=== PATIENT | male | born 1995 | race African-American/Black ===

== ENCOUNTER 2025-02-10 03:04 | Emergency (ER) | payer BC, SELFPAY ==
[2025-02-10 03:08] VITALS: BP 138/71; PULSE 95; TEMP 36.7; O2SAT 94; BMI 32.5
--- NOTE | 2025-02-10 03:09 | ED_ITS ---
HPI - Allergic Reaction General Chief complaint: Allergic Reaction Stated complaint: ALLERGIC REACTION, SOB Time Seen by Provider: 02/10/25 03:06 History of Present Illness HPI narrative: This 29-year-old male is brought to the emergency department by his girlfriend for evaluation of an allergic reaction. The patient states that he cannot breathe out of his nose. His nose is running and he is congested. His his eyes are runny and his conjunctiva are erythematous and he has hives. He is not having any difficulty breathing or swallowing. He is not on any medications whatsoever including URBANO inhibitor's. The girlfriend states that the only thing she can think of that he may be allergic to is walnuts because they had walnuts and brownies earlier in the evening. He is not having any nausea or vomiting. He did take an [id number] allergy relief medication earlier in the evening. He denies any chest pain or shortness of breath. He has not had any vomiting or stomach pain. Related Data Home Medications ?Medication ?Instructions ?Recorded ?Confirmed No Known Home Medications 02/10/25 02/10/25 Allergies Allergy/AdvReac Type Severity Reaction Status Date / Time No Known Drug Allergies Allergy Verified 02/10/25 03:15 Review of Systems ROS Status of ROS 10 or more systems reviewed and unremark able except as noted in history and below PFSH PFSH Social History Little interest or pleasure in doing things: not at all Feeling down, depressed, or hopeless: not at all Exam Narrative Exam Narrative: Vital signs and Nursing Notes reviewed: General: Awake, alert, oriented, nontoxic -[place] male, he has audible nasal congestion and clear tearing and clear rhinorrhea HEENT: Normocephalic atraumatic, mucous membranes are moist and pink, eyes are clear, conjunctiva are injected with clear tearing, there is clear rhinorrhea, mild lower lip swelling, there is no swelling of the tongue, uvula or pharyngeal soft tissues, speech is clear, there is no pooling of secretions Neck: Supple, no stridor Chest: Lungs are clear to auscultation with good air entry, there is no wheezing rhonchi or rales appreciated no accessory muscle use, patient is speaking in complete sentences-no chest wall tenderness to palpation CVS: Regular rate and rhythm S1-S2, no murmurs rubs or gallops, pulses are brisk and equal bilaterally Extremities: Moving all extremities, no lower extremity tenderness or swelling noted, negative Homans' sign, pulses are brisk and equal bilaterally Skin: Erythema and urticaria on the chest wall and neck Neuro: No focal deficits MDM - Allergic Reaction MDM Narrative Medical decision making narrative: This 29-year-old male with no significant medical history who is on no medications presents for evaluation of an allergic reaction. His girlfriend states that they ate brownies with walnuts in it earlier in the night. The patient does not think he has had walnuts in the past but is not allergic to peanuts. He is not on any medications and has not taken any medications. The only other possible inciting factor was dryer sheets. Upon arrival he was having some swelling of his lower lip, nasal congestion, conjunctival injection with clear tearing and hives on his neck and chest. He was not having any difficulty breathing or swallowing. His lungs were clear. There is no swelling of the tongue, uvula or pharyngeal soft tissues but again he did have some swelling and subjective numbness of the lower lip. He was given subcutaneous epinephrine, an IV is established and he was given IV fluids, Pepcid, Benadryl and Solu-Medrol. He was also given Afrin for the nasal congestion. On reevaluation, his symptoms has resolved. His nasal congestion has improved after the Afrin. The swelling in his lower lip has resolved. He still has no swelling of his tongue, uvula or pharyngeal soft tissues. He denies any discomfort in his throat and is not having any shortness of breath. The hives on his chest and neck have also resolved. He will be monitored for a period of time to ensure that there is no recurrence of his symptoms prior to being discharged home. Patient was monitored for approximately 2 hours in the emergency department without recurrence of his symptoms. He feels comfortable being discharged home. He will be discharged home with his girlfriend. They both have access to telephones. He will be discharged home with prescription for Pepcid, Medrol Dosepak and an EpiPen. Discharge Plan Discharge Chief Complaint: Allergic Reaction Clinical Impression: Allergic reaction, Angioedema Prescriptions / Home Meds: No Action No Known Home Medications Print Language: Namibian Referrals: Physician,Non-Staff, MD [Primary Care Provider] - 1 week
[2025-02-10 03:30] VITALS: O2SAT 95
[2025-02-10] MEDS: EPINEPHRINE HCL PF 1 MG/ML AMPULE 0.3 MG SUBQ (03:34)
[2025-02-10] MEDS: METHYLPREDNISOLONE SOD SUCC PF 125 MG/2 ML VIAL IVP (03:35)
[2025-02-10] MEDS: FAMOTIDINE/PF 20 MG/2 ML VIAL 40 MG IV (03:35)
[2025-02-10] MEDS: DIPHENHYDRAMINE HCL 50 MG/ML VIAL 25 MG IVP (03:36)
[2025-02-10] MEDS: 0.9 % SODIUM CHLORIDE 1,000 ML 1000 ML IV (03:36)
[2025-02-10] MEDS: OXYMETAZOLINE HCL 0.05% NASAL SPRAY 2 SPRAY NS (03:37)
[2025-02-10 04:28] VITALS: BP 127/51; PULSE 78; O2SAT 99
[2025-02-10 05:09] VITALS: O2SAT 99
== END 2025-02-10 05:12 | disposition home or self-care (01) ==
PROVIDERS: Emergency Provider Emergency Medicine
DX: T78.40XA Allergy, unspecified, initial encounter (principal); T78.3XXA Angioneurotic edema, initial encounter; X58.XXXA Exposure to other specified factors, initial encounter
CPT/HCPCS: 96372; 96374; 96375; 99284; J1200; J2919; J3490

== ENCOUNTER 2025-04-29 15:14 | Emergency (ER) | payer BC, SELFPAY ==
[2025-04-29 15:20] VITALS: BP 128/92; PULSE 64; TEMP 37.1; O2SAT 98; BMI 32.5
--- OUTSIDE RECORDS SUMMARY | 2025-04-29 15:21 | XMS_ITS | Clinical Summary ---
Author Organization [facility] Address [address] [place] [address] Care Team Providers Care Satellite Project Site Monitor Name Role Phone Unallocated, Noms Provider Primary Care Provi bertrand Allergies No known active allergies Medications predniSONE (Deltasone) 50 MG tablet TAKE ONE TABLET DAILY FOR 5 DAYS WITH FOOD OR MILK 05/22/2023 Active azithromycin (Zithromax) 500 MG tabletIndication s:High risk sexual behavior, unspecified type Take 2 tablets once x1 2 tablet 05/29/2023 Active Family History Medical History Relation Name Comments No Known Problems Brother No Known Problems Father No Known Problems Mother Relation Name Status Comments Brother Alive Father Alive Mother Alive Social History Tobacco Use Types Packs/Day Years Used Date Smoking Tobacco: Never Passive Smoke Exposure: Never Smokeless Tobacco: Never Tobacco Cessation:Counseling Given: Not Answered Alcohol Use Standard Drinks/Week Comments Yes 0 (1 standard drink = 0.6 oz pur e alcohol) Sex and Gender Information Value Date Recorded Sex Assigned at Not on file Legal Sex Male 10:13 PM EDT Gender Identity Not on file Sexual Orientation Not on file Last Filed Vital Signs Vital Sign Reading Time Taken Comments Blood Pressure 126/82 05/29/2023 11:13 AM EDT Pulse 88 05/29/2023 11:13 AM EDT Temperature 36.6 C (97.8 F) 05/29/2023 11:13 AM EDT Respiratory Rate 18 05/29/2023 11:13 AM EDT Oxygen Saturation 98% 05/29/2023 11:13 AM EDT Inhaled Oxygen Concentration - - Weight 115 kg (253 lb) 05/29/2023 11:13 AM EDT Height 190.5 cm (6' 3 ) 05/29/2023 11:13 AM EDT Body Mass Index 31.62 05/29/2023 11:13 AM EDT Plan of Treatment Health Maintenance Due Date Last Done Comments Influenza Vaccine (Season Ended) 2025 Insurance BCBS Care Teams Satellite Project Site Monitor Relationship Specialty Start Date End Date Unallocated, Noms MD Nydia [address] [place] [address] PCP - General 05/22/23
--- NOTE | 2025-04-29 15:30 | ED.GENADUL1 ---
HPI HPI - General Adult General Chief complaint: Urogenital-Male Stated complaint: pain in groin Time Seen by Provider: 04/29/25 15:22 Source: patient Mode of arrival: walk-in History of Present Illness HPI narrative: 30-year-old male presents to the emergency department for lumps in his groin. He was seen at an urgent care yesterday and was diagnosed with an STD. He was given IM antibiotic injection and prescribed doxycycline which she has started. He was worried about these lumps. He states the burning on urination seems to be getting better. They have been there for a few days. Related Data Home Medications ?Medication ?Instructions ?Recorded ?Confirmed doxycycline hyclate 100 mg capsule mg 04/29/25 Allergies Allergy/AdvReac Type Severity Reaction Status Date / Time No Known Drug Allergies Allergy Verified 04/29/25 15:20 Review of Systems ROS Narrative A ten point review of systems is negative except as noted above. PFSH PFSH Social History Little interest or pleasure in doing things: not at all Feeling down, depressed, or hopeless: not at all Exam Narrative Exam Narrative: Nurses note and vital signs reviewed and patient is not hypoxic. General: The patient appears well and in no apparent distress. Patient is resting comfortably on cart. Skin: Warm, dry, no pallor noted. There is no rash noted. Head: Normocephalic, atraumatic Eye: Normal conjunctiva, no drainage Ears, Nose, Mouth, and Throat: oral mucosa is moist. Nares patent. Cardiovascular: Regular Rate and Rhythm Respiratory: Patient is in no distress, no accessory muscle use, lungs are clear to auscultation, no wheezing, rales or rhonchi Back: non-tender, no CVA tenderness bilaterally to percussion. GI: Soft and nontender : Mild bilateral inguinal adenopathy present. No fluctuance or overlying erythema Musculoskeletal: The patient has no evidence of calf tenderness, no pitting edema, symmetrical pulses noted bilaterally Neurological: A&O, normal speech Psychiatric: Cooperative Constitutional Vital Signs, click to edit/add: Last Vital Signs Temp 98.7 F 04/29/25 15:20 Pulse 64 04/29/25 15:20 Resp 16 04/29/25 15:20 BP 128/92 H 04/29/25 15:20 Pulse Ox 98 04/29/25 15:20 O2 Del Method Room Air 04/29/25 15:20 Course Vital Signs Vital signs: Vital Signs Temperature 98.7 F 04/29/25 15:20 Pulse Rate 64 04/29/25 15:20 Respiratory Rate 16 04/29/25 15:20 Blood Pressure 128/92 H 04/29/25 15:20 Pulse Oximetry 98 04/29/25 15:20 Oxygen Delivery Method Room Air 04/29/25 15:20 Temperature 98.7 F 04/29/25 15:20 Pulse Rate 64 04/29/25 15:20 Respiratory Rate 16 04/29/25 15:20 Blood Pressure 128/92 H 04/29/25 15:20 Pulse Oximetry 98 04/29/25 15:20 Oxygen Delivery Method Room Air 04/29/25 15:20 Medical Decision Making MDM Narrative Medical decision making narrative: My clinical impression is that the patient has bilateral inguinal adenopathy. He was reassured. He will finish his antibiotics. Treatment diagnosis and follow-up were discussed with the patient. Differential Diagnosis Differential Diagnosis: Adenopathy, cellulitis, abscess Discharge Plan Discharge Chief Complaint: Urogenital-Male Clinical Impression: Lymphadenopathy, inguinal Patient Disposition: Home, Self-Care Time of Disposition Decision: 15:29 Condition: Good Mode of Transportation: Private Vehicle Prescriptions / Home Meds: No Action doxycycline hyclate 100 mg capsule Print Language: Faroese Additional Instructions: Continue the antibiotics prescribed to you yesterday, and finish them. Referrals: Physician,Non-Staff, MD [Primary Care Provider] - 1 week
== END 2025-04-29 15:47 | disposition home or self-care (01) ==
PROVIDERS: Emergency Provider Emergency Medicine
DX: R59.0 Localized enlarged lymph nodes (principal)
CPT/HCPCS: 99282

== ENCOUNTER 2025-07-03 13:19 | Emergency (ER) | payer BC, SELFPAY ==
[2025-07-03 13:23] VITALS: BP 124/80; PULSE 58; TEMP 36.8; O2SAT 97; BMI 31.2
--- NOTE | 2025-07-03 13:27 | PC.NURSE ---
PT STATES BEEN LOOSING PATCHES OF HAIR OFF AND ON OVER THE PAST MONTH. PT STATES HAS HAPPENED BEFORE AND GOT AN INJECTION INTO SCALP AND HAIR GREW BACK. PT HAS FAMILY HX OF ALOPECIA
--- NOTE | 2025-07-03 13:31 | ED.SKABFB1 ---
HPI - Skin/Abscess/Foreign Bdy General Chief complaint: Skin/Abscess/Foreign Body Stated complaint: LOSING PATCHES OF HAIR Time Seen by Provider: 07/03/25 13:29 Source: patient Mode of arrival: walk-in Limitations: no limitations History of Present Illness HPI narrative: 30 year old male presents to the ED for hair loss. Reports several patches of hair loss to his scalp and gan with onset a few weeks ago. States he had one patch of hair loss 5 years ago and was given an injection in his scalp with improvement. Denies fever, chills, injury. Denies use of new medications or products. Reports increased stress. Related Data Home Medications ?Medication ?Instructions ?Recorded ?Confirmed No Known Home Medications 07/03/25 07/03/25 Allergies Allergy/AdvReac Type Severity Reaction Status Date / Time walnut AdvReac Mild Swelling Verified 07/03/25 13:23 of the Eye Review of Systems ROS Constitutional Denies: fever or chills Ears, nose, mouth, and throat Denies: throat pain Cardiovascular Denies: chest pain Respiratory Denies: shortness of breath Integumentary/Breast Reports: change in hair Neurological Denies: headache PFSH PFSH Social History Little interest or pleasure in doing things: not at all Feeling down, depressed, or hopeless: not at all Exam Constitutional Vital Signs, click to edit/add: Last Vital Signs Temp 98.2 F 07/03/25 13:23 Pulse 58 L 07/03/25 13:23 Resp 18 07/03/25 13:23 BP 124/80 07/03/25 13:23 Pulse Ox 97 07/03/25 13:23 O2 Del Method Room Air 07/03/25 13:23 Common normals: no apparent distress and oriented x3 General appearance: cooperative HENMT Other: Two patches of hair loss noted to scalp area. No erythema, crusting, or drainage to areas. Eye Common normals: conjunctivae normal and no scleral icterus Neck & C-Spine Common normals: supple Chest Chest: symmetrical chest wall rise Respiratory Common normals: normal respiratory effort Effort & inspection: able to speak in complete sentences and symmetric chest movement Cardio Common normals: regular rate Neuro Oliverio Coma Scale: document GCS findings Common normals: oriented x3 and moves all extremities Sensorium/orientation: awake and alert Speech: speech normal Gait (neuro): normal gait Course Vital Signs Vital signs: Vital Signs Temperature 98.2 F 07/03/25 13:23 Pulse Rate 58 L 07/03/25 13:23 Respiratory Rate 18 07/03/25 13:23 Blood Pressure 124/80 07/03/25 13:23 Pulse Oximetry 97 07/03/25 13:23 Oxygen Delivery Method Room Air 07/03/25 13:23 Temperature 98.2 F 07/03/25 13:23 Pulse Rate 58 L 07/03/25 13:23 Respiratory Rate 18 07/03/25 13:23 Blood Pressure 124/80 07/03/25 13:23 Pulse Oximetry 97 07/03/25 13:23 Oxygen Delivery Method Room Air 07/03/25 13:23 MDM - Skin/Abscess/Foreign Bdy MDM Narrative Medical decision making narrative: Follow up with dermatology for a recheck, further evaluation and treatment. Differential Diagnosis Differential diagnosis: Likely other (alopecia, fungal infection, trauma) Medical Records Attestation: I reviewed the patient's medical records. Discharge Plan Discharge Chief Complaint: Skin/Abscess/Foreign Body Clinical Impression: Patchy loss of hair Patient Disposition: Home, Self-Care Time of Disposition Decision: 13:29 Condition: Good Mode of Transportation: Private Vehicle Prescriptions / Home Meds: No Action No Known Home Medications Print Language: [place] Verdean Instructions: Alopecia (DC) Referrals: FRIDA ASKEW [Physician, Family Practice] - 1 week Physician,Non-Staff, MD [Primary Care Provider] - 1 week NIEVES VERDUGO [Physician, Family Practice] - 1 week Discharge Date/Time: 07/03/25 13:35
--- OUTSIDE RECORDS SUMMARY | 2025-07-03 13:54 | XMS_ITS | CCD ---
Author Organization [facility] Inform ion Partnership [facility] Care Team Providers Care Obstetrics Tech Name Role Phone EVA PARMAR Admitting Unavailable EVA PARMAR Attending Unavailable DR JAMIE YU V Consulting Unavailable EVA PARMAR Consulting Unavailable KIMBERLY Eden Attending Provider BRIANNE Segovia Attending Provider Carine Granados Admitting Unavailable Carine Granados Attending Unavailable NO FAMILY, PHYSICIAN Primary Care Unavailable Allergies Allergy Classification Reported Allergen(s) Allergy Type Date of Onset Reaction(s) Facility (3 sources) walnut; Translations: [walnut] Allergy to substance 5 Difficulty Breathing [facility] Medications Current Medications Medication Drug Class(es) Dates Sig (Normalized) Sig (Original) Arm Brace misc (1 source) Start: 04-14-2025 Arm Brace misc Active 0 .Route 1 April 14, 2025 12:00am As directed [place] (No Known Home Meds) (2 sources) Start: 04-12-2024 [place] (No Known Home Meds) Active April 12, 2024 12:00am Completed/Discontinued Medications Medication Drug Class(es) Dates Sig (Normalized) Sig (Original) amoxicillin 875 mg oral tablet (7 sources) Penicillin-class Antibacterial Start: 06-05-2021 End: 05-22-2023 take 1 tablet by mouth twice daily Amoxicillin 875 mg tablet Discontinued 875 MG PO Twice daily 01 09June 05, 2021 12:00am May 22, 2023 1:50pm azithromycin 500 mg oral tablet (7 sources) Macrolide Antimicrobial Start: 02-25-2024 End: 03-22-2024 take 1 tablet by mouth once at mealtime Azithromycin 500 mg tablet Discontinued 1000 MG PO Once February 25, 2024 12:00am March 22, 2024 1:02pm Take both tablets by mouth with food today Start: 02-25-2024 End: 03-22-2024 take 1 tablet by mouth once at mealtime Azithromycin Discontinued 1000 MG PO Once February 25, 2024 12:00am March 22, 2024 1:02pm Take both tablets by mouth with food today cyclobenzaprine hydrochloride 10 mg oral tablet (9 sources) Muscle Relaxant Start: 03-03-2025 End: 04-14-2025 take 1 tablet by mouth three times daily as needed for muscle spasms Cyclobenzaprine 10 mg tablet Discontinued 10 MG PO Three times daily as needed for muscle spasm 15 March 03, 2025 12:00am March 03, 2025 10:43am Start: 03-22-2024 End: 04-12-2024 take 1 tablet by mouth three times daily as needed for muscle spasms Cyclobenzaprine 10 mg tablet Discontinued 10 MG PO Three times daily as needed for muscle spasm 15 March 22, 2024 12:00April 12, 2024 2:45pm diclofenac sodium 0.01 mg/mg topical gel (7 sources) Nonsteroidal Anti-inflammatory Drug Start: 05-22-2023 End: 03-22-2024 apply 4 g topically four times daily Diclofenac Sodium 1 % gel Discontinued 4 GM TOPICAL Four times daily May 22, 2023 12:00am March 22, 2024 1:02pm apply to single knee, ankle, foot; for foot includes sole/toes/top of foot Start: 05-22-2023 End: 03-22-2024 apply 4 g topically four times daily Diclofenac Sodium Discontinued 4 GM TOPICAL Four times daily May 22, 2023 12:00am March 22, 2024 1:02pm apply to single knee, ankle, foot; for foot includes sole/toes/top of foot ibuprofen 800 mg oral tablet (12 sources) Nonsteroidal Anti-inflammatory Drug Start: 03-22-2024 End: 04-12-2024 take 1 tablet by mouth every eight hours as needed for pain Ibuprofen 800 mg tablet Discontinued 800 MG PO Every 8 hours as needed for pain 30 March 22, 2024 12:00am April 12, 2024 2:45pm Start: 06-05-2021 End: 05-22-2023 take 1 tablet by mouth every eight hours as needed for pain Ibuprofen 600 mg tablet Discontinued 600 MG PO Q8H as needed for pain June 05, 2021 12:00am May 22, 2023 1:50pm metroNIDAZOLE 500 mg oral tablet (7 sources) Nitroimidazole Antimicrobial Start: 02-25-2024 End: 03-22-2024 take 4 tablets by mouth once at mealtime Metronidazole 500 mg tablet Discontinued 2000 MG PO Once February 25, 2024 12:00am March 22, 2024 1:02pm Take all 4 tablets at once with food tomorrow. Start: 02-25-2024 End: 03-22-2024 take 4 tablets by mouth once at mealtime Metronidazole Discontinued 2000 MG PO Once February 25, 2024 12:00am March 22, 2024 1:02pm Take all 4 tablets at once with food tomorrow. predniSONE 50 mg oral tablet (7 sources) Start: 05-22-2023 End: 03-22-2024 take 1 tablet by mouth once daily at mealtime Prednisone 50 mg tablet Discontinued 50 MG PO Daily 03 17May 22, 2023 12:00am March 22, 2024 1:02pm administer with food or milk Problems Problem Classification Problem Date Documented Da te Episodic/Chronic Administrative/social admission (4 sources) Encounter for pre-employment examination; Translations: [ENCOUNTER FOR PRE-EMPLOYMENT EXAM] Onset: 01-12-2023 Episodic Genitourinary symptoms and ill-defined conditions (5 sources) Dysuria; Translations: [Dysuria] 02-25-2024 Episodic Nausea and vomiting (7 sources) Nausea; Translations: [Nausea] 10-25-2023 Episodic Comment on above: Problem List clean-u p per request of Phys. EHR Cmte Other connective tissue disease (7 sources) Muscle pain; Translations: [Myalgia, unspecified site] 10-25-2023 Episodic Comment on above: Problem List clean-u p per request of Phys. EHR Cmte Other non-traumatic joint disorders (7 sources) Effusion of joint of left knee; Translations: [Effusion, left knee] 05-30-2023 Episodic Other upper respiratory infections (7 sources) Sinusitis; Translations: [Chronic sinusitis, unspecified] 10-25-2023 Chronic Comment on above: Problem List clean-u p per request of Phys. EHR Cmte Residual codes; unclassified (8 sources) High risk heterosexual behavior; Translations: [High-risk sexual behavior] Onset: 04-28-2025 02-25-2024 Episodic Sprains and strains (9 sources) Low back strain; Translations: [Strain of muscle, fascia and tendon of lower back, initial encounter] 03-22-2024 Episodic Results Test Name Value Interpretation Reference Range Facil ity Chlamydia/GC/Trich NAAon Chlamydia Trachomotis, PARTH Negative Normal Negative [facility] Comment on above: Performed By: #### G CCHLAMTRI #### [facility] , Neisseria Gonorrhoeae, PARTH Negative Normal Negative [facility] Comment on above: Performed By: #### G CCHLAMTRI #### [facility] , Trichomonas PARTH Negative Normal Negative [facility] Comment on above: Result Comment: Perf ormed at: =G - [facility] [address], [place] [id number] Home Health Clinical Liaison: Krista Centeno MD, Phone: [phone] PERFORMED BY: [facility] [address] [place] [address] PATHOLOGIST SUCTION PLATE ROLLER HAND KATIE WATSON M.D. Performed By: #### G CCHLAMTRI #### [facility] , Chlamydia trachomatis DNA [P resence] in Specimen by PARTH with probe detectionOrdered By: Omaira Eden on 02-25-2024 C. trachomatis DNA PARTH+probe Ql (Unsp spec) Negative Negative [facility] Neisseria gonorrhoeae DNA [P resence] in Specimen by PARTH with probe detectionOrdered By: Omaira Eden on 02-25-2024 N. gonorrhoeae DNA PARTH+probe Ql (Unsp spec) Positive Negative [facility] Trichomonas vaginalis DNA [P resence] in Specimen by PARTH with probe detectionOrdered By: Omaira Eden on 02-25-2024 T. vaginalis DNA PARTH+probe Ql (Unsp spec) Negative Negative [facility] Comment on above: Performed at: =G - [address], [place] [id number] Director: Krista Centeno MD, Phone: [phone] Vital Signs Date Time Vital Sign Value Performing Clinician Edilson jones 04-14-2025 12:05-0400 Body height 190.5 cm [facility] 04-14-2025 12:05-0400 Body mass index (BMI) [Ratio] 33 kg/m2 [facility] 04-14-2025 12:05-0400 Body temperature 97.9 [degF] [facility] 04-14-2025 12:05-0400 Body weight 119.74 kg [facility] 04-14-2025 12:05-0400 Diastolic blood pressure 83 mm[Hg] [facility] 04-14-2025 12:05-0400 Heart rate 67 /min [facility] 04-14-2025 12:05-0400 Respiratory rate 18 /min [facility] 04-14-2025 12:05-0400 SaO2% (BldA) [Mass fraction] 98 % [facility] 04-14-2025 12:05-0400 Systolic blood pressure 144 mm[Hg] [facility] 03-03-2025 10:08-0400 Body height 190.5 cm [facility] 03-03-2025 10:08-0400 Body mass index (BMI) [Ratio] 32.3 kg/m2 [facility] 03-03-2025 10:08-0400 Body temperature 97.6 [degF] [facility] 03-03-2025 10:08-0400 Body weight 117.25 kg [facility] 03-03-2025 10:08-0400 Diastolic blood pressure 76 mm[Hg] [facility] 03-03-2025 10:08-0400 Heart rate 66 /min [facility] 03-03-2025 10:08-0400 Respiratory rate 14 /min [facility] 03-03-2025 10:08-0400 SaO2% (BldA) [Mass fraction] 98 % [facility] 03-03-2025 10:08-0400 Systolic blood pressure 111 mm[Hg] [facility] 04-12-2024 14:42-0400 Body height 190.5 cm [employer]ECH LANGUAGE PATHOLOGIST TRAVEL-C Omaira Karey Work Phone: [facility] 04-12-2024 14:42-0400 Body mass index (BMI) [Ratio] 32.2 kg/m2 [employer] PATHOLOGIST TRAVEL-C Omaira Karey Work Phone: [facility] 04-12-2024 14:42-0400 Body temperature 98.1 [degF] [employer]ANGUAGE PATHOLOGIST TRAVEL-C Omaira Karey Work Phone: [facility] 04-12-2024 14:42-0400 Body weight 117 kg [employer] LANGUAGE PATHOLOGIST TRAVEL-C Omaira Karey Work Phone: [facility] 04-12-2024 14:42-0400 Diastolic blood pressure 63 mm[Hg] [employer] LANGUAGE PATHOLOGIST TRAVEL-C Omaira Karey Work Phone: [facility] 04-12-2024 14:42-0400 Heart rate 71 /min [employer] LANGUAGE PATHOLOGIST TRAVEL-C Omaira Karey Work Phone: [facility] 04-12-2024 14:42-0400 Respiratory rate 18 /min [employer] LANGUAGE PATHOLOGIST TRAVEL-C Omaira Karey Work Phone: [facility] 04-12-2024 14:42-0400 SaO2% (BldA) [Mass fraction] 97 % [employer]ANGUAGE PATHOLOGIST TRAVEL-C Omaira Karey Work Phone: [facility] 04-12-2024 14:42-0400 Systolic blood pressure 139 mm[Hg] [employer] LANGUAGE PATHOLOGIST TRAVEL-C Omaira Karey Work Phone: [facility] 03-22-2024 13:05-0400 Body height 190.5 cm SPEECH LANGUAGE PATHOLOGIST TRAVEL-C Omaira Karey Work Phone: [facility] 03-22-2024 13:05-0400 Body mass index (BMI) [Ratio] 32.5 kg/m2 [employer] LANGUAGE PATHOLOGIST TRAVEL-C Omaira Karey Work Phone: [facility] 03-22-2024 13:05-0400 Body temperature 98.3 [degF] SPE[employer] LANGUAGE PATHOLOGIST TRAVEL-C Omaira Karey Work Phone: [facility] 03-22-2024 13:05-0400 Body weight 117.93 kg [employer] LANGUAGE PATHOLOGIST TRAVEL-C Omaira Karey Work Phone: [facility] 03-22-2024 13:05-0400 Diastolic blood pressure 81 mm[Hg] [employer] LANGUAGE PATHOLOGIST TRAVEL-C Omaira Karey Work Phone: [facility] 03-22-2024 13:05-0400 Heart rate 86 /min [employer] LANGUAGE PATHOLOGIST TRAVEL-C Omaira Karey Work Phone: [facility] 03-22-2024 13:05-0400 Respiratory rate 18 /min [employer] LANGUAGE PATHOLOGIST TRAVEL-C Omaira Karey Work Phone: [facility] 03-22-2024 13:05-0400 SaO2% (BldA) [Mass fraction] 99 % [employer] LANGUAGE PATHOLOGIST TRAVEL-C Omaira Karey Work Phone: [facility] 03-22-2024 13:05-0400 Systolic blood pressure 140 mm[Hg] SPEE[employer] LANGUAGE PATHOLOGIST TRAVEL-C Omaira Karey Work Phone: [facility] 02-25-2024 10:35-0400 Body height 190.5 cm [facility] 02-25-2024 10:35-0400 Body mass index (BMI) [Ratio] 32.3 kg/m2 [facility] 02-25-2024 10:35-0400 Body temperature 98.6 [degF] [facility] 02-25-2024 10:35-0400 Body weight 117.19 kg [facility] 02-25-2024 10:35-0400 Diastolic blood pressure 80 mm[Hg] [facility] 02-25-2024 10:35-0400 Heart rate 74 /min [facility] 02-25-2024 10:35-0400 Respiratory rate 18 /min [facility] 02-25-2024 10:35-0400 SaO2% (BldA) [Mass fraction] 97 % [facility] 02-25-2024 10:35-0400 Systolic blood pressure 133 mm[Hg] [facility] Encounters Encounter Date Encounter Type Care Provider Facility Start: 04-28-2025 End: 04-28-2025 ambulatory Carine Granados Facility:[facility] Start: 04-14-2025 End: 04-14-2025 ambulatory [facility] Work Phone: Start: 04-14-2025 End: 04-14-2025 Patient encounter procedure [facility] Work Phone: Start: 03-03-2025 End: 03-03-2025 ambulatory [facility] Work Phone: Start: 03-03-2025 End: 03-03-2025 Patient encounter procedure [facility] Work Phone: Start: 04-12-2024 End: 04-12-2024 Departed Referred [employer] LANGUAGE PATHOLOGIST TRAVEL-C Omaira Karey Work Phone: [facility] [place] Work Phone: Start: 04-12-2024 End: 04-12-2024 ambulatory [employer] PATHOLOGIST TRAVEL-C Omaira Karey Work Phone: [facility] Work Phone: Start: 04-12-2024 End: 04-12-2024 Patient encounter procedure SPEECH LANGUAGE PATHOLOGIST TRAVEL-C Omaira Karey Work Phone: [facility] Work Phone: Start: 03-22-2024 End: 03-22-2024 ambulatory [employer] LANGUAGE PATHOLOGIST TRAVEL-C Omaira Karey Work Phone: [facility] Work Phone: Start: 03-22-2024 End: 03-22-2024 Patient encounter procedure SPEECH LANGUAGE PATHOLOGIST TRAVEL-C Omaira Karey Work Phone: [facility] Work Phone: Start: 02-25-2024 End: 02-25-2024 Departed Referred SPEECH LANGUAGE PATHOLOGIST TRAVEL-C Omaira Eden Work Phone: [facility] [place] Work Phone: Start: 02-25-2024 End: 02-25-2024 ambulatory [facility] Work Phone: Start: 02-25-2024 End: 02-25-2024 Patient encounter procedure [facility] Work Phone: Start: 01-12-2023 End: 01-13-2023 ambulatory EVA AGATA Facility: Plan of Treatment Date Care Activity Detail Author Start: 04-12-2024 [facility] Start: 02-26-2024 [facility] Chlamydia trachomati s DNA [Presence] in Unspecified specimen by PARTH with probe detection [facility] Chlamydia trachomati s DNA [Presence] in Unspecified specimen by PARTH with probe detection [facility] Neisseria gonorrhoea e DNA [Presence] in Unspecified specimen by PARTH with probe detection [facility] Neisseria gonorrhoea e DNA [Presence] in Unspecified specimen by PARTH with probe detection [facility] Trichomonas vaginali s DNA [Presence] in Unspecified specimen by PARTH with probe detection [facility] Trichomonas vaginali s DNA [Presence] in Unspecified specimen by PARTH with probe detection [facility] Payers Date Payer Category Payer Unknown [id number] 1958 Self-pay Private Health Insurance [employer] [id number] Unknown [id number] Unknown Private Pay [facility] [id number] Unknown [id number] Social History Date Type Detail Facility Start: 05-22-2023 End: 03-22-2024 Tobacco smoking status NHIS Smoker (finding) [facility] Start: 1995 Sex Assigned At Male F [facility] Start: 03-03-2025 Tobacco smoking stat NHIS Ex-smoker (finding) [facility] Start: 03-03-2025 End: 04-14-2025 Sex Male (finding) [facility] Evaluation note 03-03-2025 Note Date & Type Note Facility 03-03-2025 Evaluation note Diagnosis Onset Date Resolution Low back strain acute February 9:46am Sprain of left wrist acute April 14, 2025 11:39am [facility] Work Phone: Clinical Note 01-12-2023 Note Date & Type Note Facility 01-12-2023 Note EXAMINATION: XR CHES T 2 V HISTORY: History and physical examination, pre-employment COMPARISON: No relevant comparison available. TECHNIQUE: PA and lateral FINDINGS: LUNGS: No significant pulmonary parenchymal abnormalities. VASCULATURE: No increased pulmonary vasculature. PLEURA: No pneumothorax, effusion, or pleural thickening. CARDIAC: No cardiomegaly or cardiac silhouette abnormality. MEDIASTINUM: No visible mass or adenopathy. BONES: No fracture or visible bone lesion. OTHER: Negative. IMPRESSION: No acute disease. Electronically authenticated by: JAMIE YU Date: 2023-01-12 16:24 [facility] Evaluation note Note Date & Type Note Facility Evaluation note Diagnosis Onset Date High risk sexual behavior no neactive Dysuria noneactive [facility] Work Phone: Evaluation note Note Date & Type Note Facility Evaluation note Diagnosis Onset Date High risk sexual behavior no neactive Dysuria noneactive Low back strain acute High risk sexual behavior no neactive [facility] Work Phone: Evaluation note Note Date & Type Note Facility Evaluation note No assessment information availa ble [facility] Work Phone: Summary Purpose Family History No Family History Records FoundNo Family History Records Found Advance Directives No Advanced Directives Records Found Advance Directive Response Recorded Date/ Time Advance Directives No July 10:04am Chief Complaint and Reason for Visit Chief Complaint poss std Reason for Visit High risk sexual beh avior Dysuria Chief Complaint poss std High risk sexual behavior Reason for Visit High risk sexual beh avior Dysuria Chief Complaint poss std Z72.51 lower back hurts Reason for Visit High risk sexual beh avior Dysuria Chief Complaint poss std Z72.51 lower back hurts Sti check Reason for Visit High risk sexual beh avior Dysuria Low back strain High risk sexual behavior Chief Complaint poss std Z72.51 lower back hurts Sti check High risk sexual behavior Reason for Visit High risk sexual beh avior Dysuria Low back strain High risk sexual behavior Chief Complaint Admit Date lower back pain from weight lifting Apri l 2024 9:46am Chief Complaint Admit Date lower back pain from weight lifting Apri l 2024 9:46am left wrist injury April 14, 2025 11:39 am Reason for Visit Admit Date Low back strain March 03, 2025 9:4 6am Sprain of left wrist April 14, 2025 11:3 9am Additional Source Comments (unrecognized sect ion and content) No Status Records FoundNo Status Records Found INFORMATION SOURCE (unrecogn ized section and content) DATE CREATED AUTHOR 01/18/2023 Que carrasquilloal DATE CREATED AUTHOR AUTHOR'S ORGANIZ ATION 05/04/2025 [facility] Care Teams (unrecognized sec tion and content) Team Status: Active Member Role Status Dates PHYSICIAN NO FAMILY Primary Care Provider Active Team Status: Inactive Member Role Status Dates PHYSICIAN NO FAMILY Primary Care Provider Active Start: February 25, 2024 End: February 25, 2024 KIMBERLY Pereira Attending Provider Active S tart: February 25, 2024 End: February 25, 2024 Team Status: Inactive Member Role Status Dates KIMBERLY Pereira Attending Provider Active S tart: February 25, 2024 End: February 25, 2024 Team Status: Active Member Role Status Dates NON STAFF Primary Care Provider Active Team Status: Inactive Member Role Status Dates Ronit Segovia APRN Attending Provider Active Start: March 22, 2024 End: March 22, 2024 NON STAFF Primary Care Provider Active Start: March 22, 2024 End: March 22, 2024 Team Status: Inactive Member Role Status Dates NON STAFF Primary Care Provider Active Start: April 12, 2024 End: April 12, 2024 Ronit Segovia APRN Attending Provider Active Start: April 12, 2024 End: April 12, 2024 Team Status: Inactive Member Role Status Dates Ronit Segovia APRN Attending Provider Active Start: April 12, 2024 End: April 12, 2024 Team Status: Inactive Member Role Status Dates PHYSICIAN NO FAMILY Primary Care Provider Active Start: March 03, 2025 End: March 03, 2025 Ronit Segovia APRN Attending Provider Active Start: March 03, 2025 End: March 03, 2025 Team Status: Inactive Member Role Status Dates PHYSICIAN NO FAMILY Primary Care Provider Active Start: April 14, 2025 End: April 14, 2025 Ronit Segovia APRN Attending Provider Active Start: April 14, 2025 End: April 14, 2025 Goals (unrecognized section and content) Goals may be documented in a n alternate sectionGoals may be documented in an alternate sectionGoals may be documented in an alternate sectionGoals may be documented in an alternate sectionGoals may be documented in an alternate sectionGoals may be documented in an alternate sectionGoals may be documented in an alternate section FOR RECORDS PERTAINING TO PATIENTS WHO ARE OR HAVE BEEN ENROLLED IN A CHEMICAL DEPENDENCY/SUBSTANCEABUSE PROGRAM, SOME INFORMATION MAY BE OMITTED. This clinical summary was aggregated from multiple sources. Caution should be exercised in using it in the provision of clinical care. This summary normalizes information from multiple sources, and as a consequence, information in this document may materially change the coding, format and clinical context of patient data. In addition, data may be omitted in some cases. CLINICAL DECISIONS SHOULD BE BASED ON THE PRIMARY CLINICAL RECORDS. [facility]. provides no warranty or guarantee of the accuracy or completeness of information in this document.
== END 2025-07-03 13:35 | disposition home or self-care (01) ==
PROVIDERS: Emergency Provider Emergency Medicine
DX: L65.9 Nonscarring hair loss, unspecified (principal)
CPT/HCPCS: 99281

== ENCOUNTER 2025-11-09 06:07 | Emergency (ER) | payer BC, SELFPAY ==
[2025-11-09 06:13] VITALS: BP 143/87; PULSE 100; TEMP 37.2; O2SAT 98; BMI 33.7
--- NOTE | 2025-11-09 06:19 | PC.NURSE ---
Patient reports noting blood in urine this morning. Denies any trouble urinating or pain with urination. Denies any flank pain or back pain.
[2025-11-09 06:44] LABS: Glucose Urine UA NEGATIVE (NEGATIVE)
--- NOTE | 2025-11-09 06:44 | ED.MALEGU1 ---
HPI - Male Genitourinary General Chief complaint: Urogenital-Male Stated complaint: blood in urine Time Seen by Provider: 11/09/25 06:20 Source: patient Mode of arrival: walk-in History of Present Illness HPI Narrative: cc - blood in urine Pt reported that he urinated after sex and had blood in his urine. He denies any known exposure to STD and he had no urinary symptoms - such as urgency, frequency or pain with urination - pruior to that. He did admits that the sex was kind of dry and a little vigorous . No prior history of hematuria, kidney stones or UTI. No abdominal pain or flank pain. No fever or chills. Related Data Home Medications ?Medication ?Instructions ?Recorded ?Confirmed No Known Home Medications 07/03/25 11/09/25 Allergies Allergy/AdvReac Type Severity Reaction Status Date / Time walnut AdvReac Mild Swelling Verified 11/09/25 06:13 of the Eye PFSH PFS Social History Little interest or pleasure in doing things: not at all Feeling down, depressed, or hopeless: not at all Exam Narrative Exam Narrative: Nurses notes and vital signs reviewed and patient is not hypoxic. afebrile General: Well-appearing and in no apparent distress. Skin: Warm, dry, no pallor noted. Eye: Pupils are equal, round and EOMI. No scleral icterus. Ears, Nose, Mouth, and Throat: Oral mucosa is moist Cardiovascular: Regular Rate and Rhythm without murmur, gallop or rub. Respiratory: No accessory muscle use or respiratory distress. Lungs are clear to auscultation, no wheezing, rales or rhonchi Back: No CVA tenderness Musculoskeletal: normal ROM GI: Abdomen is soft, non-distended. Normal bowel sounds. No abdominal or suprapubic masses appreciated. No tenderness to palpation. No rebound, guarding, or rigidity noted. Neurological: A&O x4. No cranial nerve dysfunction observed. No truncal ataxia. Moves all extremities. Sensation intact. Psychiatric: Cooperative and interactive. Normal mood and affect. Constitutional Vital Signs, click to edit/add: Last Vital Signs Temp 98.9 F 11/09/25 06:13 Pulse 100 H 11/09/25 06:13 Resp 20 11/09/25 06:13 BP 143/87 H 11/09/25 06:13 Pulse Ox 98 11/09/25 06:13 O2 Del Method Room Air 11/09/25 06:13 Course Vital Signs Vital signs: Vital Signs Temperature 98.9 F 11/09/25 06:13 Pulse Rate 100 H 11/09/25 06:13 Respiratory Rate 20 11/09/25 06:13 Blood Pressure 143/87 H 11/09/25 06:13 Pulse Oximetry 98 11/09/25 06:13 Oxygen Delivery Method Room Air 11/09/25 06:13 Temperature 98.9 F 11/09/25 06:13 Pulse Rate 100 H 11/09/25 06:13 Respiratory Rate 20 11/09/25 06:13 Blood Pressure 143/87 H 11/09/25 06:13 Pulse Oximetry 98 11/09/25 06:13 Oxygen Delivery Method Room Air 11/09/25 06:13 MDM - Male Genitourinary MDM Narrative Medical decision making narrative: Patient presents with hematuria after intercourse. Urine was obtained and sent for testing. Blood in urine but no sign of acute UTI. Pt discharged home - he was given info for urology follow up if his symptoms persist. Lab Data Attestation: I reviewed the patient's lab results. Labs: Lab Results 11/09/25 Range/Units 06:20 Urine Color Lt. yellow (YELLOW) Urine Clarity Clear (CLEAR) Urine pH 6.0 (5.0-9.0) Ur Specific [place] 1.020 (1.005-1.025) Urine Protein Negative (NEG/TRACE) mg/dL Urine Glucose (UA) Negative (NEGATIVE) mg/dL Urine Ketones Negative (NEGATIVE) mg/dL Urine Occult Blood Moderate A (NEGATIVE) Urine Nitrite Negative (NEGATIVE) Urine Bilirubin Negative (NEGATIVE) Urine Urobilinogen 0.2 (0.2-1.0) EU/dL Ur Leukocyte Esterase Negative (NEGATIVE) Urine RBC 20-50 A (0-2) #/HPF Urine WBC 0-2 A (NONE SEEN) #/HPF Ur Squamous Epith Cells None seen (NONE/RARE) #/LPF Urine Crystals None seen (None Seen) #/HPF Urine Bacteria None seen (NONE SEEN) #/HPF Urine Casts None seen (NONE SEEN) #/LPF Urine Mucus None seen (NONE SEEN) Ur Culture Indicated? No Discharge Plan Discharge Chief Complaint: Urogenital-Male Clinical Impression: Hematuria Patient Disposition: Home, Self-Care Time of Disposition Decision: 06:52 Prescriptions / Home Meds: No Action No Known Home Medications Print Language: Swiss Instructions: Hematuria (ED) Referrals: Physician,Non-Staff, MD [Primary Care Provider] - 1 week
[2025-11-09 06:51] LABS: Cast Seen? NONE SEEN #/LPF (NONE SEEN); Crystals Seen? None Seen #/HPF (None Seen); Urine Culture Indicated NO
--- OUTSIDE RECORDS SUMMARY | 2025-11-09 06:53 | XMS_ITS | CCD ---
Author Organization [facility] Inform ion Partnership [facility] Care Team Providers Care Director Microbiology Name Role Phone EVA PARMAR Admitting Unavailable EVA PARMAR Attending Unavailable DR JAMIE YU V Consulting Unavailable EVA PARMAR Consulting Unavailable KIMBERLY Eden Attending Provider [phone] BRIANNE Segovia Attending Provider Carine Granados Admitting Unavailable Carine Granados Attending Unavailable NO FAMILY, PHYSICIAN Primary Care Unavailable Allergies Allergy ClassificationReported Allergen(s)Allergy TypeDate of OnsetReaction(s) Facility (3 sources)walnut; Translations: [walnut]Allergy to gsabsxmra49-62-8468 Difficulty BreathingC[facility] Medications Current Medications MedicationDrug Class(es)DatesSig (Normalized)Sig (Original)Arm Brace misc (1 source)Start: 38-09-6048Cdu Brace misc Active 0 .Route April 14, 2025 12:00am As directedNo Name (No Known Home Meds) (2 sources)Start: 79-11-5081So Name (No Known Home Meds) Active April 12, 2024 12:00am Completed/Discontinued Medications MedicationDrug Class(es)DatesSig (Normalized)Sig (Original)amoxicillin 875 mg oral tablet (7 sources)Penicillin-class AntibacterialStart: 06-05-2021 End: 04-73-0307qujl 1 tablet by mouth twice dailyAmoxicillin 875 mg tablet Discontinued 875 MG PO Twice daily 01 09June 05, 2021 12:00am May 22, 2023 1:50pmazithromycin 500 mg oral tablet (7 sources)Macrolide AntimicrobialStart: 02-25-2024 End: 86-01-4130thvk 1 tablet by mouth once at mealtimeAzithromycin 500 mg tablet Discontinued 1000 MG PO Once February 25, 2024 12:00am March 22, 2024 1:02pm Take both tablets by mouth with food todayStart: 02-25-2024 End: 21-59-6620nahi 1 tablet by mouth once at mealtimeAzithromycin Discontinued 1000 MG PO Once February 25, 2024 12:00am March 22, 2024 1:02pm Take both tablets by mouth with food todaycyclobenzaprine hydrochloride 10 mg oral tablet (9 sources)Muscle RelaxantStart: 03-03-2025 End: 36-77-0960snmy 1 tablet by mouth three times daily as needed for muscle spasmsCyclobenzaprine 10 mg tablet Discontinued 10 MG PO Three times daily as needed for muscle spasm 15 March 03, 2025 12:00am March 03, 2025 10:43am Start: 03-22-2024 End: 84-13-6624jszj 1 tablet by mouth three times daily as needed for muscle spasmsCyclobenzaprine 10 mg tablet Discontinued 10 MG PO Three times daily as needed for muscle spasm 15 5 March 22, 2024 12:00am April 12, 2024 2:45pm diclofenac sodium 0.01 mg/mg topical gel (7 sources)Nonsteroidal Anti-inflammatory DrugStart: 05-22-2023 End: 92-52-0067gjpeh 4 g topically four times dailyDiclofenac Sodium 1 % gel Discontinued 4 GM TOPICAL Four times daily May 22, 2023 12:00am March 22, 2024 1:02pm apply to single knee, ankle, foot; for foot includes sole/toes/top of footStart: 05-22-2023 End: 64-91-1369mkkkx 4 g topically four times dailyDiclofenac Sodium Discontinued 4 GM TOPICAL Four times daily May 22, 2023 12:00am March 22, 2024 1:02pm apply to single knee, ankle, foot; for foot includes sole/toes/top of footibuprofen 800 mg oral tablet (12 sources)Nonsteroidal Anti-inflammatory DrugStart: 03-22-2024 End: 57-60-8586fobf 1 tablet by mouth every eight hours as needed for pain Ibuprofen 800 mg tablet Discontinued 800 MG PO Every 8 hours as needed for pain 11 09March 22, 2024 12:00am April 12, 2024 2:45pmStart: 06-05-2021 End: 27-09-4100arbq 1 tablet by mouth every eight hours as needed for pain Ibuprofen 600 mg tablet Discontinued 600 MG PO Q8H as needed for pain June 05, 2021 12:00am May 22, 2023 1:50pmmetroNIDAZOLE 500 mg oral tablet (7 sources)Nitroimidazole AntimicrobialStart: 02-25-2024 End: 98-80-0538hzil 4 tablets by mouth once at mealtimeMetronidazole 500 mg tablet Discontinued 2000 MG PO Once February 25, 2024 12:00am March 22, 2024 1 :02pm Take all 4 tablets at once with food tomorrow.Start: 02-25-2024 End: 83-17-6741zdog 4 tablets by mouth once at mealtimeMetronidazole Discontinued 2000 MG PO Once February 25, 2024 12:00am March 22, 2024 1:02pm Take all 4 tablets at once with food tomorrow.predniSONE 50 mg oral tablet (7 sources)Start: 05-22-2023 End: 71-18-4439aupz 1 tablet by mouth once daily at mealtimePrednisone 50 mg tablet Discontinued 50 MG PO Daily 5 May 22, 2023 12:00am March 22, 2024 1:02pm administer with food or milk Problems Problem ClassificationProblemDateDocumented DateEpisodic/Chronic Administrative/social admission (4 sources)Encounter for pre-employment examination; Translations: [ENCOUNTER FOR PRE-EMPLOYMENT EXAM]Onset: 78-64-9945AlvtehzxBpaesyvmzryac symptoms and ill- defined conditions (5 sources)Dysuria; Translations: [Dysuria]94-53-3189BtqvfnffQmdtcs and vomiting (7 sources)Nausea; Translations: [Nausea]57-50-8093NltwmwhpBzaimcm on above: Problem List clean-up per request of Phys. EHR CmteOther connective tissue disease (7 sources)Muscle pain; Translations: [Myalgia, unspecified site]10-25-2023 EpisodicComment on above:Problem List clean-up per request of Phys. EHR Cmte Other non-traumatic joint disorders (7 sources)Effusion of joint of left knee; Translations: [Effusion, left knee] 72-96-5348ZpzisgvoEulyn upper respiratory infections (7 sources)Sinusitis; Translations: [Chronic sinusitis, unspecified]10-25-2023 ChronicComment on above:Problem List clean-up per request of Phys. EHR Cmte Residual codes; unclassified (8 sources)High risk heterosexual behavior; Translations: [High-risk sexual behavior]Onset: [id number]zqie and strains (9 sources)Low back strain; Translations: [Strain of muscle, fascia and tendon of lower back, initial encounter]64-37-1737Ykhimdpv Results Test NameValueInterpretationReference RangeFacilityChlamydia/GC/Trich NAAon 33-96-4384Gsodbnhul Trachomotis, NAANegativeNormalNegativeThe [facility] Physician GroupComment on above:Performed By: #### GCCHLAMTRI #### [facility] ,Neisseria Gonorrhoeae, NAANegativeNormalNegativeThe [facility] Comment on above:Performed By: #### GCCHLAMTRI #### [facility] ,Trichomonas NAANegativeNormalNegativeThe [facility] Physician GroupComment on above:Result Comment: Performed at: =[facility] [id number] Poultry Hatchery Man: Krista Centeno MD, Phone: [phone] PERFORMED BY: [facility] [address] [place] [address] PATHOLOGIST [employer] APPLIANCE TECH KATIE WATSON M.D.Performed By: #### GCCHLAMTRI #### [facility] ,Chlamydia trachomatis DNA [Presence] in Specimen by PARTH with probe detection Ordered By: Omaira Eden on 02-25-2024. trachomatis DNA PARTH+probe Ql (Unsp spec)NegativeNegativeCleveland Clinic Lutheran HospitalNeisseria gonorrhoeae DNA [Presence] in Specimen by PARTH with probe detectionOrdered By: Omaira Eden on 02-25-2024N. gonorrhoeae DNA PARTH+probe Ql (Unsp spec)PositiveNegativeCleveland Clinic Lutheran HospitalTrichomonas vaginalis DNA [Presence] in Specimen by PARTH with probe detectionOrdered By: Omaira Eden on 02-25-2024T. vaginalis DNA PARTH+probe Ql (Unsp spec)NegativeNegativeCleveland Clinic Lutheran HospitalComment on above:Performed at: = - [facility] [id number] Director: Krista Centeno MD, Phone: [phone] Vital Signs Date TimeVital SignValuePerforming UehdrkbntYtlkzjky85-07-7588 12:05-0400Body .5 cmCleveland Clinic Lutheran Hospital06-02-2025 12:05-0400Body mass index (BMI) [Ratio]33 kg/a9DhparzkkrCleveland Clinic Lutheran Hospital06-02-2025 12:05-0400Body oavxrxfslgp18.9 [degF][facility]06-02-2025 12:05-0400Body piroch384.74 kgC[facility] Clinic Luther[facility] Hospital06-02-2025 12:05-0400Diastolic blood miacncbv84 mm[Hg][facility] 04-14-2025 12:05-0400Heart rate67 /[facility] 04-14-2025 12:05-0400Respiratory rate18 /[facility] 04-14-2025 12:05-7129ZhA4% (BldA) [Mass fraction]98 %[facility]06-02-2025 12:05-0400Systolic blood ytynivyr269 mm[Hg][facility]04-21-2025 10:08-0400Body .5 cmC[facility] Clinic [facility] Hospital04-21-2025 10:08-0400Body mass index (BMI) [Ratio]32.3 kg/h3YdsygmstnCleveland Clinic Lutheran Hospital04-21-2025 10:08-0400Body abwojoqdxru98.6 [degF][facility]04-21-2025 10:08-0400Body .25 kgC[facility] Clinic [facility] Hospital04-21-2025 10:08-0400Diastolic blood gmvdwsuv09 mm[Hg] [facility]04-21-2025 10:08-0400Heart rate66 /[facility]04-21-2025 10:08-0400Respiratory rate14 /[facility]04-21-2025 10:08-5889FvC4% (BldA) [Mass fraction]98 % [facility]04-21-2025 10:08-0400Systolic blood mm[Hg][facility]05-31-2024 14:42-0400Body togbjt355.5 cm POSTAL SUPERINTENDENT-C Omaira Karey Work Phone: [address] [place], [place] [address]-31-2024 14:42-0400 Body mass index (BMI) [Ratio]32.2 kg/m2NP-C Omaira Karey Work Phone: [address] [place], [place] [address]-31-2024 14:42-0400 Body npbnxqbaemg50.1 [degF]POSTAL SUPERINTENDENT-C Omaira Karey Work Phone: [address] [place], [place] [address]-31-2024 14:42-0400 Body vtgewt687 kgNP-C Omaira Karey Work Phone: [address] [place], [place] [address]-31-2024 14:42-0400 Diastolic blood mm[Hg]POSTAL SUPERINTENDENT-C Omaira Karey Work Phone: [facility]05-31-2024 14:42-0400 Heart rate71 /minNP-C Omaira Karey Work Phone: [facility]05-31-2024 14:42-0400 Respiratory rate18 /minNP-C Omaira Karey Work Phone: [facility]05-31-2024 14:42-0400 SaO2% (BldA) [Mass fraction]97 %POSTAL SUPERINTENDENT-C Omaira Karey Work Phone: [facility]05-31-2024 14:42-0400 Systolic blood mwejuzdy173 mm[Hg]POSTAL SUPERINTENDENT-C Omaira Karey Work Phone: [facility]05-10-2024 13:05-0400 Body .5 cmNP-C Omaira Eden Work Phone: [facility]05-10-2024 13:05-0400 Body mass index (BMI) [Ratio]32.5 kg/m2NP-C Omaira Eden Work Phone: [facility]05-10-2024 13:05-0400 Body jszfikqtuxd61.3 [degF]POSTAL SUPERINTENDENT-C Omaira Eden Work Phone: [phone] [place], [place] [address]-10-2024 13:05-0400 Body bjnwwe017.93 kgNP-C Omaira Eden Work Phone: [phone]05-10-2024 13:05-0400 Diastolic blood xedqvjmm65 mm[Hg]POSTAL SUPERINTENDENT-C Omaira Eden Work Phone: [facility]05-10-2024 13:05-0400 Heart rate86 /minNP-C Omaira Eden Work Phone: [facility]05-10-2024 13:05-0400 Respiratory rate18 /minNP-C Omaira Eden Work Phone: [facility]05-10-2024 13:05-0400 SaO2% (BldA) [Mass fraction]99 %POSTAL SUPERINTENDENT-C Omaira Eden Work Phone: [phone] [place], [place] [address]605-10-2024 13:05-0400 Systolic blood rampitqm745 mm[Hg]POSTAL SUPERINTENDENT-C Omaira Eden Work Phone: [address] [place], [place] [address]-14-2024 10:35-0400 Body .5 cmC[facility] Clinic Luther[facility] Hospital04-14-2024 10:35-0400Body mass index (BMI) [Ratio]32.3 kg/c1CchfqsolfCleveland Clinic Lutheran Hospital04-14-2024 10:35-0400Body yftxfobvwns11.6 [degF][facility]04-14-2024 10:35-0400Body qvgika377.19 kgC[facility] Clinic Luther[facility] Hospital04-14-2024 10:35-0400Diastolic blood qdygwxuk16 mm[Hg][facility] 02-25-2024 10:35-0400Heart rate74 /[facility] 02-25-2024 10:35-0400Respiratory rate18 /[facility] 02-25-2024 10:35-0527JnJ7% (BldA) [Mass fraction]97 %[facility]04-14-2024 10:35-0400Systolic blood gnkeewrl275 mm[Hg][facility] Encounters Encounter DateEncounter TypeCare ProviderFacilityStart: 04-28-2025 End: 17-46-4135nkvowsxftzDmobta M GrobFacility:[facility] Start: 04-14-2025 End: 00-76-9867nvuyhvviecRlmasvmrbTriHealth [facility] Work Phone: Start: 04-14-2025 End: 09-37-5912Prlkacn encounter procedureDorothea [facility] Work Phone: Start: 03-03-2025 End: 70-71-4558bxsghpnujsGjaqovmwhUC Medical Center Work Phone: Start: 03-03-2025 End: 51-30-3976Exspkte encounter procedureDorothea Dix Hospital [facility] Work Phone: Start: 04-12-2024 End: 54-22-5851Whgeccet ReferredNP-C Omaira Eden Work Phone: [facility] [place] Work Phone: Start: 04-12-2024 End: 66-77-3386azpcoaxhgiMP-C Omaira Eden Work Phone: [facility] Work Phone: Start: 04-12-2024 End: 65-53-3098Wlwcpgb encounter procedureNP-C Omaira Tinajeromond Work Phone: [facility] Work Phone: Start: 03-22-2024 End: 68-26-3209dzqyupxzvxQT-C Omaira Eden Work Phone: [facility] Work Phone: Start: 03-22-2024 End: 01-41-1952Cjvlzek encounter procedureNP-C Omaira Tinajeromond Work Phone: [facility] [place] Work Phone: Start: 02-25-2024 End: 47-36-2801Nhpjrplw ReferredNP-C Omaira Tinajeromond Work Phone: [facility] [place] Work Phone: Start: 02-25-2024 End: 64-61-6777stpjdeefxqYyvnmrapoUC Medical Center Work Phone: Start: 02-25-2024 End: 93-83-5166Xstgyfh encounter procedureDorothea Dix Hospital [facility] [place] Work Phone: Start: 01-12-2023 End: 27-80-0356pxhnrrpdzuHAGGYFSP EBERLYFacility:H1 Plan of Treatment DateCare ActivityDetailAuthorStart: 78-58-6839ZvcpvvnutC[facility] Clinic Lutheran Hospital Start: 43-93-3535FgblinzcyCleveland Clinic Lutheran HospitalChlamydia trachomatis DNA [Presence] in Unspecified specimen by PARTH with probe detectionCleveland Clinic Lutheran HospitalChlamydia trachomatis DNA [Presence] in Unspecified specimen by PARTH with probe detectionCleveland Clinic Lutheran HospitalNeisseria gonorrhoeae DNA [Presence] in Unspecified specimen by PARTH with probe detectionCleveland Clinic Lutheran HospitalNeisseria gonorrhoeae DNA [Presence] in Unspecified specimen by PARTH with probe detectionCleveland Clinic Lutheran HospitalTrichomonas vaginalis DNA [Presence] in Unspecified specimen by PARTH with probe detection [facility] HospitalTrichomonas vaginalis DNA [Presence] in Unspecified specimen by PARTH with probe detectionNaval Hospital [facility] Payers DatePayer CategoryPayerPolicy [id number] Health Insurance [employer] Insurance [id number] Pay [id number] Social History DateTypeDetailFacilityStart: 05-22-2023 End: 06-12-5345Wknlhls smoking status NHISSmoker (finding)[facility] 54-[facility]-6570[facility]Mem[facility]: 86-06-3650Zbkjitj smoking status NHISEx-smoker (finding) [facility] 03-03-2025 End: 14-70-2024TkqNsqe (finding)[facility] Evaluation note 03-03-2025 Note Date & LpodSrchZgwatgwu64-77-1301 Evaluation note* Diagnosis Onset Date Resolution Status Admit Date Low back strain acuteApril 2024 9:46amSprain of left wristacuteJune 2024 11:39am [facility] Work Phone: Clinical Note 01-12-2023 Note Date & MihoEajcWebfwhhm61-60-1759 NoteEXAMINATION: XR CHEST 2 V HISTORY: History and physical examination, [...] Electronically authenticated by: JAMIE YU Date: 2023-01-12 16:24[facility] Evaluation note Note Date & TypeNoteFacilityEvaluation note* Diagnosis Onset Date Resolution Status High risk sexual behavior noneactiveDysurianoneactive [facility] Work Phone: Evaluation note Note Date & TypeNoteFacilityEvaluation note* Diagnosis Onset Date Resolution Status High risk sexual behavior noneactiveDysurianoneactiveLow back strainacuteHigh risk sexual behavior noneactive [facility] Work Phone: Evaluation note Note Date & TypeNoteFacilityEvaluation noteNo assessment information available [facility] Work Phone: Summary Purpose Family History No Family History Records FoundNo Family History Records Found Advance Directives No Advanced Directives Records Found Advance Directive Response Recorded Date/ Time Advance Directives No July 10:04am Chief Complaint and Reason for Visit Chief Complaint poss std Reason for Visit High risk sexual beh avior Dysuria Chief Complaint poss std High risk sexual behaviorReason for VisitHigh risk sexual behavior Dysuria Chief Complaint poss std Z72.51 lower back hurtsReason for VisitHigh risk sexual behavior Dysuria Chief Complaint poss std Z72.51 lower back hurts Sti checkReason for VisitHigh risk sexual behavior Dysuria Low back strain High risk sexual behavior Chief Complaint poss std Z72.51 lower back hurts Sti check High risk sexual behaviorReason for VisitHigh risk sexual behavior Dysuria Low back strain High risk sexual [...] section and content) DATE CREATED AUTHOR 01/18/2023 [facility] DATE CREATED AUTHOR AUTHOR'S ORGANIZ ATION 05/04/2025 [facility] Care Teams (unrecognized sec tion and content) Team Status: Active Member Role Status Dates PHYSICIAN NO FAMILY Primary Care Provider Active Team Status: Inactive Member Role Status Dates PHYSICIAN NO FAMILY Primary Care Provider Active Start: February 25, 2024 End: February 24Biju Cordova ProviderActiveStart: February 25, 2024 End: February 25, 2024 Team Status: Inactive Member Role Status Dates KIMBERLY Pereira Attending Provider Active S tart: February 25, 2024 End: February 25, 2024 Team Status: Active Member Role Status Dates NON STAFF Primary Care Provider Active Team Status: Inactive Member Role Status Dates Ronit Segovia APRN Attending Provider Active Start: March 22, 2024 End: March 22, 2024NON STAFFPrimary Care ProviderActiveStart: March 22, 2024 End: March 22, 2024 Team Status: Inactive Member Role Status Dates NON STAFF Primary Care Provider Active Start: April 12, 2024 End: April 12, 2024Mariusz Gongora ProviderActiveStart: April 12, 2024 End: April 12, 2024 Team Status: Inactive Member Role Status Dates Ronit Segovia APRN Attending Provider Active Start: April 12, 2024 End: April 12, 2024 Team Status: Inactive Member Role Status Dates PHYSICIAN NO FAMILY Primary Care Provider Active Start: March 03, 2025 End: March 03, 2025Mariusz Gongora ProviderActiveStart: March 03, 2025 End: March 03, 2025 Team Status: Inactive Member Role Status Dates PHYSICIAN NO FAMILY Primary Care Provider Active Start: April 14, 2025 End: April 14, 2025Mariusz Gongora ProviderActiveStart: April 14, 2025 End: April 14, 2025 [...] BE BASED ON THE PRIMARY CLINICAL RECORDS. [facility]. provides no warranty or guarantee of the accuracy or completeness of information in this document.
--- OUTSIDE RECORDS SUMMARY | 2025-11-09 06:54 | XMS_ITS | Patient Health Record ---
Author Organization [facility] Address [address] [place] [address] Care Team Providers Care Roving Frame Tender Name Role Phone Twyla Rosales Primary Care Provider Allergies No Known Allergies Reason For Referral No Information Medications Medication SIG (Take, Route, Frequency, Duration) Notes Start Date End Date Status SUMAtriptan Succinate 50 MG Tablet 1 tab let at least 2 hours between doses as needed Orally Twice a day; Duration: 30 days 2Active Social History Tobacco Use: Social History Observation Description Date Details (start date - stop date) Former Smoker NA - NA Sex Assigned At : Social History Observation Description Sex Assigned At Male Social History GeneralSocial InfoQuestionAnswerNotesSubstance abuse/mental health issues of patient/familyPatient -DeniesAbility to understand healthcare/treatmentPatient: GoodTobacco Screen:Are you a:former smoker? How long has it been since you last smoked?1-3 monthsSexual Hx:Had sex in the last 12 months (vaginal, oral, or anal)?YesHave you ever had an STD?NoSocial/Support Concerns:Patient:NoAlcohol Screening:Did you have a drink containing alcohol in the past year?Yes? How often did you have a drink containing alcohol in the past year?Monthly or less (1 point)? How many drinks did you have on a typical day when you were drinking in the past year?1 or 2 (0 points)Lpzqnb1KomgthrdjmoipbGuewtcasLybmtbpdr affecting healthPoor/Risky Behaviors:Denies-Communication Barrier:Language Barrier?:No Problems Problem Type SNOMED Code ICD Code Onset Dates Problem Status W/U Status Risk Notes Problem New daily persistent headache (501709555352848) New daily persistent headache (G44.52) ActiveconfirmedProblemRefractory migraine without aura (157909265)Intractable migraine without aura and with status migrainosus (G43.011)Activeconfirmed Plan Of Treatment No Information Insurance Providers Payer Name Payer Address Payer Phone Subscriber Number Group Number Insured Name Patient Relationship to Insured Coverage Start Date Coverage End Date [employer] [address] [address] [place] [address] [id number] DAWIT MOORE Self - patient is the insured 2 Medical (General) History Medical History History ICD Code Headaches reports Migraines Surgical History Surgery Date(Month/Year) left knee surgery 2016
--- OUTSIDE RECORDS SUMMARY | 2025-11-09 06:54 | XMS_ITS | Clinical Summary ---
Author Organization [facility] Address [address] [place] [address] Care Team Providers Care Glue Machine Operator Name Role Phone Unallocated, [facility] Provider Primary Care Provi bertrand Allergies No known active allergies Medications MedicationSigDispense QuantityRefillsLast FilledStart DateEnd DateStatus predniSONE (Deltasone) 50 MG tablet TAKE ONE TABLET DAILY FOR 5 DAYS WITH FOOD OR MILK05/22/2023ctive azithromycin (Zithromax) 500 MG tablet Indications:High risk sexual behavior, unspecified typeTake 2 tablets once x1 2 tablet 05/29/2023ctive Family History Medical HistoryRelationNameCommentsNo Known ProblemsBrotherNo Known Problems FatherNo Known ProblemsMotherRelationNameStatusCommentsBrotherAliveFatherAlive MotherAlive Social History Tobacco UseTypesPacks/DayYears UsedDateSmoking Tobacco: NeverPassive Smoke Exposure: NeverSmokeless Tobacco: Never Tobacco Cessation:Counseling Given: Not Answered Alcohol UseStandard Drinks/WeekCommentsYes0 (1 standard drink = 0.6 oz pure alcohol)Sex and Gender InformationValueDate RecordedSex Assigned at BirthNot on fileLegal YtiEjni3801/25/2023 10:13 PM EDTGender IdentityNot on fileSexual OrientationNot on file Last Filed Vital Signs Vital SignReadingTime TakenCommentsBlood Codsuenx939/8207 11:13 AM EDT Zggbx024205/29/2023 11:13 AM ERECvwegmapazy59.6 ??C (97.8 ??F)05/29/2023 11:13 AM EDTRespiratory Pkqh1020 11:13 AM EDTOxygen Ovmeqoartt90%05/29/2023 11:13 AM EDTInhaled Oxygen Concentration--Yzdvtk107 kg (253 lb)05/29/2023 11:13 AM EDT Uszkgf867.5 cm (6' 3 )05/29/2023 11:13 AM EDTBody Mass Index31.62005/29/2023 11:13 AM EDT Plan of Treatment Health MaintenanceDue DateLast DoneCommentsInfluenza Vaccine (#1)07/14/2025 Pneumococcal Vaccine: Pediatrics (0 to 5 Years) and At-Risk Patients (6 to 64 Years)Aged OutNo longer eligible based on patient's age to complete this topic Insurance Care Teams Team MemberRelationshipSpecialtyStart DateEnd Date Unallocated, [facility] Provider, [address] [place], [place] [address] PCP - [facility]05/22/23
== END 2025-11-09 07:00 | disposition home or self-care (01) ==
PROVIDERS: Emergency Provider Emergency Medicine
DX: R31.9 Hematuria, unspecified (principal)
CPT/HCPCS: 81001; 99283